=== PATIENT | female | born 1970 | race Two or more races ===

== ENCOUNTER 2022-04-05 07:14 | Day surgery (SDC) | payer MEDICAID ==
[~2022-04-05] VITALS: Ht 160 cm; Wt 59.4 kg
[2022-04-05] VITALS (8 sets, daily range): BP systolic 127–171; BP diastolic 76–101
[2022-04-05] MEDS ORDERED: IODIXANOL 320MG/ML 100ML BTL IV ONE (09:26)
[2022-04-05] MEDS ORDERED: LIDOCAINE 2%HCL (LOCAL ANESTH.) INJ 10ml MDV ONE (09:26)
[2022-04-05] MEDS ORDERED: VERAPAMIL 2.5MG/ML INJ 2ML VIAL IV ONE (09:29)
[2022-04-05] MEDS ORDERED: HEPARIN SODIUM (PORCINE) 5000 UNITS/ML 1ML VIAL ONE (09:29)
[2022-04-05] MEDS ORDERED: fentaNYL CITRATE 100 MCG/2 ML VL ONE (09:29)
[2022-04-05] MEDS ORDERED: ANGIOMAX 250 MG VIAL IV ONE (09:29)
[2022-04-05] MEDS ORDERED: SODIUM CHL 0.9% 0 ML ONE (09:30)
[2022-04-05] MEDS ORDERED: MIDAZOLAM HCL 2MG/2ML 2ml VIAL (1mg/ml) ONE (09:30)
[2022-04-05] MEDS ORDERED: diphenhdrAMINE HCL 50 MG/1 ML VL ONE (11:03)
[2022-04-05] MEDS ORDERED: diphenhdrAMINE HCL 50 MG/1 ML VL IV ONE (11:15)
[2022-04-05] MEDS ORDERED: ALBUAER3 IN (12:39)
[2022-04-05] MEDS ORDERED: LOSA-39 PO (12:39)
[2022-04-05] MEDS ORDERED: IPRAAER6 IN (12:39)
[2022-04-05] MEDS ORDERED: LORA0.5T20 PO (12:39)
[2022-04-05] MEDS ORDERED: BACL10TA PO (12:39)
[2022-04-05] MEDS ORDERED: CLON0.2D6 PO (12:39)
[2022-04-05] MEDS ORDERED: TRIA0.5C TOP (12:39)
[2022-04-05] MEDS ORDERED: GABA300C10 PO (12:39)
[2022-04-05] MEDS ORDERED: ATOR10TA52 PO (12:39)
[2022-04-05] MEDS ORDERED: NITR0.4S29 SL (12:39)
[2022-04-05] MEDS ORDERED: NIFE90TA49 PO (12:39)
[2022-04-05] MEDS ORDERED: IBUP600T28 PO (12:39)
[2022-04-05] MEDS ORDERED: METO-159 PO (12:39)
== END 2022-04-05 12:48 | disposition home or self-care (01) ==
LOC: CATH 07:14
PROVIDERS: ATTEND Internal Medicine Cardiovascular Disease
DX: R94.39 Abnormal result of other cardiovascular function study (principal); I25.10 Atherosclerotic heart disease of native coronary artery without angina pectoris; I10 Essential (primary) hypertension; J44.9 Chronic obstructive pulmonary disease, unspecified; E78.5 Hyperlipidemia, unspecified; F17.210 Nicotine dependence, cigarettes, uncomplicated; Z82.49 Family history of ischemic heart disease and other diseases of the circulatory system; Z86.73 Personal history of transient ischemic attack (TIA), and cerebral infarction without residual deficits; Z20.822 Contact with and (suspected) exposure to COVID-19
CPT/HCPCS: 93458; C1887; C1894; J1200; J1644; J2001; J2250; J3010; Q9967; U0003; 99152; 99153

== ENCOUNTER 2025-10-11 18:08 | Inpatient (IN) | payer MEDICARE, OTHER ==
[~2025-10-11] VITALS: Ht 160 cm; Wt 73.8 kg
[~2025-10-11 18:08] MED LIST: ALBUAER3 IN; ATOR10TA52 PO; BACL10TA PO; CLON0.2D6 PO; GABA-1250 PO; IBUP1TAB5 PO; IPRAAER6 IN; LORA-1121 PO; LOSA-535 PO; METO-159 PO; NIFE90TA75 PO; NITR0.4S29 SL; TRIA0.5C TOP
--- NOTE | 2025-10-11 18:35 | ECG ---
[facility] Test Date: 2025-10-11 Test Time: 18:27:59 Pat Name: BHASKAR ABAD Department: ED Room: [facility] Gender: F Traffic Rate Clerk: EUGENIA : 1970 Requested By: YESICA NIEVES Order Number: [id number] Reading MD: Edson Hernandez Measurements Intervals [place] Rate: 115 P: 57 GA: 111 QRS: 14 QRSD: 74 T: 0 QT: 338 QTc: 468 Interpretive Statements Sinus tachycardia Borderline T abnormalities, diffuse leads Electronically Signed On 10-14-2025 15:01:17 PST by Edson Hernandez Please click the below link to view image of tracing.
[2025-10-11 18:55] LABS: Hematocrit 20.2 % (36.0-46.0)
[2025-10-11 18:57] LABS: Mean Corpuscular Hemoglobin 28.2 pg (28.0-32.0); Mean Corpuscular Volume 85.0 fL (80.0-100.0); Nucleated Red Blood Cells % 0.9 %
[2025-10-11 19:08] LABS: Chloride 104 mmol/L (98-107); Potassium 3.8 mmol/L (3.5-5.1); Sodium 140 mmol/L (136-145)
[2025-10-11 19:09] LABS: Anion Gap 10 (5-15); Carbon Dioxide 26 mmol/L (20-31)
[2025-10-11 19:10] LABS: Calcium 9.1 mg/dL (8.7-10.4)
[2025-10-11 19:14] LABS: BUN/Creatinine Ratio 13.0 (10.0-20.0); Blood Urea Nitrogen 9 mg/dL (9-23)
[2025-10-11 19:17] LABS: Glucose 112 mg/dL (74-106)
[2025-10-11 20:08] LABS: Hemoglobin 6.7 g/dL (12.2-16.2)
[2025-10-11 20:09] LABS: Stomatocytes Few
--- NOTE | 2025-10-11 21:26 | ED.PDOC ---
History of Present Illness HPI Comments 54-year-old female who came to ER for for abnormal labs. Patient has history of brain and lung cancer, currently on chemotherapy. Had routine blood test done earlier, was called to come to the ER because of low hemoglobin levels (6.9). Had prior history of blood transfusions already. Chief Complaint: Abnormal LAB's Time Seen by MD: 21:25 Reviewed Notes: Nurses Notes Allergies: Coded Allergies: NO KNOWN ALLERGIES (Unverified , 04/05/22) Home Meds Reported Medications Triamcinolone Acetonide (Triamcinolone Acetonide) 0.5 % Cre, 1 APPLIC TOP BID for RASH, APPLIC 04/05/22 Losartan Potassium (Losartan Potassium) 100 Mg Tab, 100 MG PO DAILY for HS for 30 Days, MG 04/05/22 Clonidine Hydrochloride (Clonidine Hcl) 0.2 Mg/24 Hr Dis, 0.2 MG PO DAILY for HTN for 30 Days, MG 04/05/22 Ipratropium-Albuterol (COMBIVENT RESPIMAT) Respimat Aer, 1 IN 4 TIMES A DAY for 100 MCG, AER 04/05/22 Albuterol Sulfate (VENTOLIN MDI) 90 Mcg Ih, 90 MCG IN PRN for COPD, INH 04/05/22 Lorazepam (ATIVAN TABLET) 0.5 Mg Tb, 0.5 MG PO TIDP PRN for ANXIETY, TAB 04/05/22 Ibuprofen Micronized (Ibuprofen) 600 Mg Tab, 600 MG PO TIDP, TAB 04/05/22 Baclofen (Baclofen) 10 Mg Tab, 10 MG PO Q8HP PRN for MUSCLE for 30 Days, MG 04/05/22 Gabapentin (Gabapentin) 300 Mg Cap, 300 MG PO TID for NEUROPATHY for 30 Days, MG 04/05/22 Atorvastatin Calcium (ATORVASTATIN CALCIUM) 10 Mg Tab, 1 TAB PO HS for HIGH CHOLESTEROL, #30 TAB 5 Refills 04/05/22 Nifedipine (Nifedipine Er) 90 Mg Tab, 1 TAB PO DAILY for HTN, #30 TAB 5 Refills 04/05/22 Metoprolol Tartrate (Metoprolol Tartrate) 100 Mg Tab, 100 MG PO DAILY for HTN for 30 Days, MG 04/05/22 Nitroglycerin (Nitrostat) 0.4 Mg Sub, 0.4 MG SL PRN for CHEST PAIN, INJ 04/05/22 Information Source: Patient Mode of Arrival: Ambulatory Past Medical History PAST MEDICAL HISTORY: Anemia, Cancer Surgical History (Other): Chemo Therapy PHYSICIAN COMPENSATION ANALYST History: Denies all PHYSICIAN COMPENSATION ANALYST Hx Family History Family History: Reviewed,noncontributory to illness Social History Smoker: Non-Smoker Alcohol: Denies ETOH Use Drugs: Denies Drug Use Lives In: Home Constitutional: reports: weakness; denies: chills, diaphoresis, fatigue, fever, malaise, sweats, others EENTM: denies: blurred vision, double vision, ear bleeding, ear discharge, ear drainage, ear pain, ear ringing, eye pain, eye redness, hearing loss, mouth pain, mouth swelling, nasal discharge, nose bleeding, nose congestion, nose pain, photophobia, tearing, throat pain, throat swelling, voice changes, others Respiratory: denies: cough, hemoptysis, orthopnea, SOB at rest, shortness of breath, SOB with excertion, stridor, wheezing, others Cardiovascular: denies: chest pain, dizzy spells, diaphoresis, Dyspnea on exertion, edema, irregular heart beat, left arm pain, lightheadedness, palpitations, PND, syncope, others Gastrointestinal: denies: abdomen distended, abdominal pain, blood streaked bowels, constipated, diarrhea, dysphagia, difficulty swallowing, hematemesis, melena, nausea, poor appetite, poor fluid intake, rectal bleeding, rectal pain, vomiting, others Genitourinary: denies: abnormal vagina bleeding, burning, dyspareunia, dysuria, flank pain, frequency, hematuria, incontinence, pain, , vagina discharge, urgency, others Neurological: denies: dizziness, fainting, headache, left sided numbness, left sided weakness, numbness, paresthesia, pre-existing deficit, right sided numbn ess, right sided weakness, seizure, speech problems, tingling, tremors, weakness, others Musculoskeletal: denies: back pain, gout, joint pain, joint swelling, muscle pain, muscle stiffness, neck pain, others Integumetry: denies: bruises, change in color, change in hair/nails, dryness, laceration, lesions, lumps, rash, wounds, others Allergic/Immunocompromised: denies: Difficulty Healing, Frequent Infections, Hives, Itching, others Hematologic/Lymphatic: reports: anemia; denies: blood clots, easy bleeding, easy bruising, swollen glands, others Endocrine: denies: excessive hunger, excessive sweating, excessive thirst, excessive urination, flushing, intolerance to cold, intolerance to heat, unexplained weight gain, unexplained weight loss, others Psychiatric: denies: anxiety, bipolar disorder, depression, hopeless, panic disorder, schizophrenia, sleepless, suicidal, others Physical Exam General Appearance: No Apparent Distress, Normal HEENT: Normal ENT Inspection, Pharynx Normal, TMs Normal Neck: Full Range of Motion, Non-Tender, Normal, Normal Inspection Respiratory: Chest Non-Tender, Lungs Clear, No Accessory Muscle Use, No Respiratory Distress, Normal Breath Sounds Cardiovascular: No Edema, No JVD, No Murmur, No Gallop, Normal Peripheral Pul ses, Regular Rate/Rhythm Breast Exam: Deferred Gastrointestinal: No Organomegaly, Non Tender, No Pulsatile Mass, Normal Bowel Sounds, Soft Genitalia: Deferred Pelvic: Deferred Rectal: Deferred Extremities: No calf tenderness, Normal capillary refill, Normal inspection, Normal range of motion, Non-tender, No pedal edema Musculoskeletal : Apperance: Normal Neurologic: Alert, wire coiler II-XII nml as Tested, No Motor Deficits, Normal Affect, Normal Mood, No Sensory Deficits Cerebellar Function: Normal Reflexes: Normal Skin: Dry, Normal Color, Warm Lymphatic: No Adenopathy Was a procedure done? Was a procedure done?: No EKG EKG : Pulse Rate (adult): 115 Cardiac Rhythm: ST Differential Dx Considerations may include: Anemia, electrolyte imbalance, dehydration, cancer X-Ray, Labs, Meds, VS Vital Signs Date Time Temp Pulse Resp B/P (MAP) Pulse Ox O2 Delivery O2 Flow Rate FiO2 10/11/25 21:28 115 10/11/25 18:27 115 10/11/25 18:18 98.5 118 18 120/85 97 98.5 Lab Test 10/11/25 21:34 10/11/25 15:48 Range/Units White Blood Count 3.0 #L 2.2 L 4.4-10.8 10^3/uL Red Blood Count 2.58 L 2.38 L 4.0-5.20 10^6/uL Hemoglobin 7.3 L 6.7 *L 12.2-16.2 g/dL Hematocrit 21.9 L 20.2 L 36.0-46.0 % Mean Corpuscular Volume 84.6 85.0 80.0-100.0 fL Mean Corpuscular Hemoglobin 28.3 28.2 28.0-32.0 pg Mean Corpuscular Hemoglobin Concent 33.4 33.2 32.0-36.0 g/dL Red Cell Distribution Width 20.8 H 21.3 H 11.8-14.3 % Platelet Count 107 L 97 L 140-450 10^3/uL Mean Platelet Volume 7.0 7.0 6.9-10.8 fL Neutrophils (%) (Auto) 35.4 L 33.8 L 37.0-80.0 % Lymphocytes (%) (Auto) 54.5 H 54.5 H 10.0-50.0 % Monocytes (%) (Auto) 9.5 10.8 0.0-12.0 % Eosinophils (%) (Auto) 0.3 0.6 0.0-7.0 % Basophils (%) (Auto) 0.3 0.3 0.0-2.0 % Neutrophils # (Auto) 1.1 L 0.8 L 1.6-8.6 10 ^3/uL Lymphocytes # (Auto) 1.6 1.2 0.4-5.4 10 ^3/uL Monocytes # (Auto) 0.3 0.2 0-1.3 10 ^3/uL Eosinophils # (Auto) 0 0 0-0.8 10 ^3/uL Basophils # (Auto) 0 0 0-0.2 10 ^3/uL Nucleated Red Blood Cells 0.2 0.9 % Prothrombin Time 10.9 9.3-11.8 sec Prothrombin Time INR 1.03 0.9-1.15 Activated Partial Thromboplast Time 25.4 24.5-34.5 SEC Sodium Level 140 140 136-145 mmol/L Potassium Level 4.2 3.8 3.5-5.1 mmol/L Chloride Level 105 104 98-107 mmol/L Carbon Dioxide Level 26 26 20-31 mmol/L Anion Gap 9 10 5-15 Blood Urea Nitrogen 9 9 9-23 mg/dL Creatinine 0.81 0.69 0.550-1.02 mg/dL Glomerular Filtration Rate Calc 87 104 >90 mL/min BUN/Creatinine Ratio 11.1 13.0 10.0-20.0 Serum Glucose 113 H 112 H 74-106 mg/dL Calcium Level 9.5 9.1 8.7-10.4 mg/dL Total Bilirubin 0.3 0.2-1.0 mg/dL Aspartate Amino Transferase (AST) 16 13-40 U/L Alanine Aminotransferase (ALT) 18 7-40 U/L Alkaline Phosphatase 141 H 46-116 U/L B-Type Natriuretic Peptide 15.45 0-100 pg/mL Total Protein 7.0 5.7-8.2 g/dL Albumin 4.0 3.2-4.8 g/dL Hepatitis B Surface Antigen Pending Hepatitis C Antibody Pending Platelet Estimate Decreased Stomatocytes Few Current Medications Medications (Trade) Dose Ordered Sig/Johnson Route Start Time Stop Time Status Last Admin Sodium Chloride 1,000 ml @ 1,000 mls/hr Q1H ONCE IVB 10/11/25 21:15 10/11/25 22:14 DC 10/11/25 22:58 Time of 1ST Reevaluation: 21:22 Reevaluation 1ST: Unchanged Patient Education/Counseling: Diagnosis, Treatment Family Education/Counseling: No Family Present SEPSIS Sepsis Screen Date sepsis recognized/suspect: Oct 11, 2025 Time Sepsis recognized/suspect: 1819 Recent Procedure: No On Antibiotic Therapy: No Respiratory Rate >20: No Heart Rate >90: Yes Temp<36 C (96.8 F) or >38.3 C: No SBP <90 or MAP <65 mmHG: No New Acute Mental Status Change: No Is the patient on CPAP, BIPAP,: No Physician Orders Type And Screen (10/11/25 18:21) Chest Portable (10/11/25 21:08) Electrocardigram (10/11/25 21:08) Packedcell-Noactive Bleeding (10/11/25 21:11) Vital Signs Date Time Temp Pulse Resp B/P (MAP) Pulse Ox O2 Delivery O2 Flow Rate FiO2 10/11/25 21:28 115 10/11/25 18:27 115 10/11/25 18:18 98.5 118 18 120/85 97 98.5 Laboratory Tests Test 10/11/25 15:48 10/11/25 21:34 White Blood Count 2.2 10^3/uL (4.4-10.8) L 3.0 10^3/uL (4.4-10.8) #L Medications Medications Dose Ordered Sig/Johnson Route Start Time Stop Time Status Last Admin Dose Admin Sodium Chloride 1,000 ml @ 1,000 mls/hr Q1H ONCE IVB 10/11/25 21:15 10/11/25 22:14 DC 10/11/25 22:58 Departure 1 Departure Time of Disposition: 23:00 Impression: Primary Impression: Symptomatic anemia Disposition: ADMITTED INPATIENT Admit to: Med Surg Condition: Guarded Discharged With: Self Critical Care Note Critical Care Time?: No Stability Stability form required: No Heart Score Heart Score: Heart Score Response (Comments) Value History N/A 0 EKG N/A 0 Age N/A 0 Risk Factors N/A 0 Troponin N/A 0 Total 0 I personally scribed for YESICA NIEVES MD ([email or web address]) on 10/11/25 at 21:26. Electronically submitted by Cameron Lou ([facility]). I personally scribed for YESICA NIEVES MD ([email or web address]) on 10/11/25 at 21:28. Electronically submitted by Cameron Lou ([facility]). YESICA NIEVES MD Oct 11, 2025 21:26
--- NOTE | 2025-10-11 21:39 | DVHHPRES ---
History of Present Illness Resident Creating Document: ANILA AMAYA RESIDENT History of Present Illness This is a 54-year-old female with past medical history of CVA, COPD, CAD, brain and lung cancer currently on chemotherapy presented to the ED for abnormal lab. The patient had routine blood work done earlier and today she was informed to go to the ER for low hemoglobin level. She was diagnosed with brain and lung cancer on Mar, 2025 and was following in [facility] had received few sessions of chemotherapy and radiotherapy and also received frequent blood transfusion. She denies fever, chills, shortness of breath, cough with productive sputum, abdominal pain, nausea, vomiting, hematuria, or any altered bowel habit. Past Medical History CVA, COPD, CAD, brain and lung cancer currently on chemotherapy Past Surgical History , tonsillectomy, cholecystectomy, Port-A-Cath for chemotherapy Family History Noncontributory Past Social History Former smoker, smokes more than 1 pack per day for 40 years, quit in Mar, 2025 Nondrinker and smoke weed Lives with family Review of Systems Constitutional: No: Fever, Chills, Sweats, Weakness, Malaise, Other Eyes: No: Pain, Vision change, Conjunctivae inflammation, Eyelid inflammation, Other, Redness ENT: No: Ear pain, Ear discharge, Nose pain, Nose discharge, Nose congestion, Mouth pain, Mouth swelling, Throat pain, Throat swelling, Other Respiratory: No: Cough, Dry, Shortness of breath, SOB with excertion, Wheezing, Hemoptysis, Pleuritic Pain, Sputum, Wheezing, Other Cardiovascular: No: Chest Pain, Palpitations, Orthopnea, Paroxysmal Noc. Dyspnea, Edema, Lt Headedness, Other Gastrointestinal: Nausea, Vomiting; No: Abdominal Pain, Diarrhea, Constipation, Melena, Hematochezia, Other Genitourinary: No Dysuria, No Frequency, No Incontinence, No Hematuria, No Retention, No Other Musculoskeletal: No: other, neck pain, shoulder pain, arm pain, back pain, hand pain, leg pain, foot pain Skin: No: Rash, Lesions, Jaundice, Bruising, Other Neurological: No: Weakness, Numbness, Incoordination, Change in speech, Confusion, Seizures, Other Allergies: Coded Allergies: NO KNOWN ALLERGIES (Unverified , 04/05/22) Exam Vital Signs Vital Signs Date Time Temp Pulse Resp B/P (MAP) Pulse Ox O2 Delivery O2 Flow Rate FiO2 10/11/25 21:28 115 10/11/25 18:18 98.5 18 120/85 97 98.5 Exam Physical examination: General Appearance: Alert, Oriented X3, Cooperative, No acute distress HEENT: Atraumatic, PERRLA, EOMI, Mucous membrane moist/pink Respiratory: Port-A-Cath on the chest, Clear to auscultation, Normal air movement Cardiovascular: Regular rate, Normal S1, Normal S2, No murmurs, no chest wall tenderness Abdominal: Normal bowel sounds, Soft, No tenderness, No hepatospenomegaly, No masses Extremities: No clubbing, No cyanosis, No edema, Normal pulses, No tenderness/swelling Skin: No rashes, No breakdown, No significant lesion Neuro: Normal gait, Normal speech, Strength at 5/5 X4 ext, Normal tone, Sensation intact, Cranial nerves 3-12 NL, Reflexes 2+ Psych/Mental Status: Mental status NL, Mood NL Labs/Xrays Labs Test 10/11/25 15:48 Range/Units White Blood Count 2.2 L 4.4-10.8 10^3/uL Red Blood Count 2.38 L 4.0-5.20 10^6/uL Hemoglobin 6.7 *L 12.2-16.2 g/dL Hematocrit 20.2 L 36.0-46.0 % Mean Corpuscular Volume 85.0 80.0-100.0 fL Mean Corpuscular Hemoglobin 28.2 28.0-32.0 pg Mean Corpuscular Hemoglobin Concent 33.2 32.0-36.0 g/dL Red Cell Distribution Width 21.3 H 11.8-14.3 % Platelet Count 97 L 140-450 10^3/uL Mean Platelet Volume 7.0 6.9-10.8 fL Neutrophils (%) (Auto) 33.8 L 37.0-80.0 % Lymphocytes (%) (Auto) 54.5 H 10.0-50.0 % Monocytes (%) (Auto) 10.8 0.0-12.0 % Eosinophils (%) (Auto) 0.6 0.0-7.0 % Basophils (%) (Auto) 0.3 0.0-2.0 % Neutrophils # (Auto) 0.8 L 1.6-8.6 10 ^3/uL Lymphocytes # (Auto) 1.2 0.4-5.4 10 ^3/uL Monocytes # (Auto) 0.2 0-1.3 10 ^3/uL Eosinophils # (Auto) 0 0-0.8 10 ^3/uL Basophils # (Auto) 0 0-0.2 10 ^3/uL Nucleated Red Blood Cells 0.9 % Platelet Estimate Decreased Stomatocytes Few Sodium Level 140 136-145 mmol/L Potassium Level 3.8 3.5-5.1 mmol/L Chloride Level 104 98-107 mmol/L Carbon Dioxide Level 26 20-31 mmol/L Anion Gap 10 5-15 Blood Urea Nitrogen 9 9-23 mg/dL Creatinine 0.69 0.550-1.02 mg/dL Glomerular Filtration Rate Calc 104 >90 mL/min BUN/Creatinine Ratio 13.0 10.0-20.0 Serum Glucose 112 H 74-106 mg/dL Calcium Level 9.1 8.7-10.4 mg/dL SEPSIS Sepsis Screen Date sepsis recognized/suspect: Oct 11, 2025 Time Sepsis recognized/suspect: 1819 Recent Procedure: No On Antibiotic Therapy: No Respiratory Rate >20: No Heart Rate >90: Yes Temp<36 C (96.8 F) or >38.3 C: No SBP <90 or MAP <65 mmHG: No New Acute Mental Status Change: No Is the patient on CPAP, BIPAP,: No Physician Orders Type And Screen (10/11/25 18:21) Complete Blood Count (10/11/25 21:08) Comprehensive Metabolic Panel (10/11/25 21:08) Sodium Chloride 0.9% (10/11/25 21:15) PTPTT (10/11/25 21:08) Chest Portable (10/11/25 21:08) Electrocardigram (10/11/25 21:08) Packedcell-Noactive Bleeding (10/11/25 21:11) Admit (10/11/25 21:35) Code Status (10/11/25 21:35) Cardiac Diet-2gna,Lofat,Lochol (10/12/25 Breakfast) Vital Signs Date Time Temp Pulse Resp B/P (MAP) Pulse Ox O2 Delivery O2 Flow Rate FiO2 10/11/25 21:28 115 10/11/25 18:27 115 10/11/25 18:18 98.5 118 18 120/85 97 98.5 Laboratory Tests Test 10/11/25 15:48 White Blood Count 2.2 10^3/uL (4.4-10.8) L Assessment/Plan Assessment/Plan Assessment and plan: # Acute on chronic anemia likely secondary to chemotherapy # History of lung and brain cancer, diagnosed on 04/06 and currently on chemo and radiotherapy # Pancytopenia due to above # Leukopenia with lymphocytosis - Initial CBC showed hemoglobin 6.7 - Current hemoglobin is 7.3 and patient is not a candidate for blood transfusion right now - Monitor H&H - Chest x-ray showed rounded dense opacity within the right perihilar region. - IV NS at 75 mL/hour - IV ondansetron 4 mg Q 8 p.r.n. - Pending UA, UDS, COVID, flu and hepatitis panel # DVT prophylaxis - hold due to anemia Goal of care and code status discussed with the patient for more than 23 minutes full code Plan discussed with Dr. Streeter Plan discussed with: Patient, Other (RN) My Orders Orders - ANILA AMAYA Procedure Category Date Status Time Admit ADMIT 10/11/25 Verified 21:35 Code Status CODE 10/11/25 Verified 21:35 Cardiac DIET 10/12/25 Verified Diet-2gna,Lofat,Lochol Breakfast Date of Service: Oct 12, 2025 Billing Provider: ANILA AMAYA Common Visit Codes: [id number] INP/OBS CARE (HIGH) Secondary Visit Codes: 06679-[id number] CARE PLAN 30 MINUTES ANILA AMAYA Oct 11, 2025 21:39
[2025-10-11 21:45] LABS: Hemoglobin 7.3 g/dL (12.2-16.2)
[2025-10-11 21:48] LABS: Hematocrit 21.9 % (36.0-46.0); Mean Corpuscular Hemoglobin 28.3 pg (28.0-32.0); Mean Corpuscular Volume 84.6 fL (80.0-100.0); Nucleated Red Blood Cells % 0.2 %
--- NOTE | 2025-10-11 21:57 | DVH ---
CHEST RADIOGRAPH Indication: SOB Technique: Single frontal view of the chest was obtained COMPARISON: None FINDINGS: Right-sided Port-A-Cath in-situ with tip terminating near the cavoatrial junction. Rounded dense opacity within the right perihilar region. Lungs and pleural spaces otherwise clear. Cardiac silhouette and swati are within normal limits. Bones and soft tissues demonstrate no significant abnormality. IMPRESSION: Somewhat rounded dense opacity within the right perihilar region. This could represent either a mass or focus of pneumonia. Please correlate clinically consider follow-up x-rays or CT.
[2025-10-11 22:06] LABS: Alanine Aminotransferase 18 U/L (7-40); Albumin 4.0 g/dL (3.2-4.8); Anion Gap 9 (5-15); BUN/Creatinine Ratio 11.1 (10.0-20.0); Bilirubin, Total 0.3 mg/dL (0.2-1.0); Blood Urea Nitrogen 9 mg/dL (9-23); Calcium 9.5 mg/dL (8.7-10.4); Carbon Dioxide 26 mmol/L (20-31); Chloride 105 mmol/L (98-107); Potassium 4.2 mmol/L (3.5-5.1); Sodium 140 mmol/L (136-145); Total Protein 7.0 g/dL (5.7-8.2)
[2025-10-11 22:21] LABS: Alkaline Phosphatase 141 U/L (46-116); Glucose 113 mg/dL (74-106)
[2025-10-11 22:47] LABS: INR 1.03 (0.9-1.15); Partial Thromboplastin Time 25.4 SEC (24.5-34.5); Prothrombin Time 10.9 sec (9.3-11.8)
[2025-10-11] MEDS: SODIUM CHLORIDE 0.9% 1,000 ML IVB ONE (22:58)
[2025-10-11 23:21] VITALS: BP 125/84; PULSE 112; RESP 18; TEMP 98.5; O2SAT 98
[2025-10-11] MEDS ORDERED: ONDANSETRON HCL 4 MG/2 ML VIAL IV PRN (23:30)
[2025-10-11] MEDS: SODIUM CHLORIDE 0.9% 1,000 ML IV SCH (23:30)
[2025-10-12] VITALS (8 sets, daily range): BP systolic 115–140; BP diastolic 68–97; PULSE 92–112; RESP 16–20; TEMP 97.9–98.9; O2SAT 92–100
[2025-10-12 05:10] LABS: COVID19 ANTIGEN SOFIA FIA NEGATIVE (NEGATIVE)
--- NOTE | 2025-10-12 12:21 | DVHPN2 ---
Subjective The patient seen and examined at bedside. The patient complains that the room is too cold and she did not have her blood transfusion. Reviewed: Care Plan, H&P, Labs, Medications, Previous Orders, Radiology Changes from previous H/P or p: No Changes Eyes: No Pain, No Vision change, No Conjunctivae inflammation, No Eyelid inflammation, No Other, No Redness ENT: No Ear pain, No Ear discharge, No Nose pain, No Nose discharge, No Nose congestion, No Mouth pain, No Mouth swelling, No Throat pain, No Throat swelling, No Other Cardiovascular: No Chest Pain, No Palpitations, No Orthopnea, No Paroxysmal Noc. Dyspnea, No Edema, No Lt Headedness, No Other Respiratory: No Cough, No Dry, No Shortness of breath, No SOB with excertion, No Wheezing, No Hemoptysis, No Pleuritic Pain, No Sputum, No Other Gastrointestinal: Nausea, Vomiting; No Abdominal Pain, No Diarrhea, No Constipation, No Melena, No Hematochezia, No Other Genitourinary: No Dysuria, No Frequency, No Incontinence, No Hematuria, No Retention, No Other Musculoskeletal: No other, No neck pain, No shoulder pain, No arm pain, No back pain, No hand pain, No leg pain, No foot pain Skin: No Rash, No Lesions, No Jaundice, No Bruising, No Other Objective Vitals Vital Signs Date Time Temp Pulse Resp B/P (MAP) Pulse Ox O2 Delivery O2 Flow Rate FiO2 10/12/25 09:00 98.3 111 16 126/85 (99) 97 98.3 10/12/25 00:03 Room Air* 0 21 Intake/Output Intake and Output 10/12/25 07:00 Intake Total 240 ml Balance 240 ml Intake Oral 240 ml # Voids 2 General Appearance: Alert, Oriented X3, Cooperative, No acute distress HEENT: Atraumatic, PERRLA, EOMI, Mucous membr. moist/pink Neck: Supple Lungs: Clear to auscultation, Normal air movement Cardiovascular: Regular rate, Normal S1, Normal S2, No murmurs, Gallops, Rubs Abdomen: Normal bowel sounds, Soft, No tenderness, No hepatospenomegaly Neuro: Cranial nerves 3-12 NL Psych/Mental Status: Mental status NL Medications Current Medications Medications Dose Ordered Sig/Johnson Route Start Time Stop Time Status Last Admin Dose Admin Sodium Chloride 1,000 ml @ 75 mls/hr [id number] IV 10/11/25 23:30 10/11/25 23:30 75 MLS/HR Ondansetron HCl 4 mg Q8HPRN PRN IV 10/11/25 23:30 Acetaminophen/ Hydrocodone Bitart 1 tab Q4HPRN PRN PO 10/12/25 12:00 Laboratory Results Laboratory Tests 10/11/25 21:34 Chemistry Test 10/11/25 15:48 10/11/25 21:34 Calcium Level 9.1 mg/dL (8.7-10.4) 9.5 mg/dL (8.7-10.4) Albumin 4.0 g/dL (3.2-4.8) Total Protein 7.0 g/dL (5.7-8.2) Coagulation Test 10/11/25 21:34 Prothrombin Time 10.9 sec (9.3-11.8) Prothrombin Time INR 1.03 (0.9-1.15) Activated Partial Thromboplast Time 25.4 SEC (24.5-34.5) Cardiac Markers Test 10/11/25 21:34 B-Type Natriuretic Peptide 15.45 pg/mL (0-100) LFT Test 10/11/25 21:34 Alanine Aminotransferase (ALT) 18 U/L (7-40) Alkaline Phosphatase 141 U/L (46-116) H Aspartate Amino Transferase (AST) 16 U/L (13-40) Total Bilirubin 0.3 mg/dL (0.2-1.0) Labs and/or images reviewed: Labs reviewed by me Assessment/Plan Assessment/Plan # Acute on chronic anemia likely secondary to chemotherapy # History of lung and brain cancer, diagnosed on 04/06 and currently on chemo and radiotherapy # Pancytopenia due to above # Leukopenia with lymphocytosis - Initial CBC showed hemoglobin 6.7 - Repeat hemoglobin is 7.3 . Explained to the patient that her hemoglobin is above seven. We will type and cross and transfuse if her hemoglobin drops again less than seven. - Monitor H&H - Chest x-ray showed rounded dense opacity within the right perihilar region. - IV NS at 75 mL/hour - IV ondansetron 4 mg Q 8 p.r.n. - Pending UA, UDS, COVID, flu and hepatitis panel # DVT prophylaxis - hold due to anemia Plan discussed with: Patient My Orders Orders - RAVI NARANJO MD Procedure Category Date Status Time Hydrocodone-Acet PHA 10/12/25 In Process 5/325mg Tab ([place] 12:00 Date of Service: Oct 12, 2025 Billing Provider: RAVI NARANJO MD Common Visit Codes: [id number] INP/OBS CARE(HIGH) RAVI NARANJO MD Oct 12, 2025 12:21
[2025-10-12] MEDS: HYDROcodone-ACET 5/325MG TAB PO PRN (12:39)
[2025-10-13] VITALS (11 sets, daily range): BP systolic 123–154; BP diastolic 74–102; PULSE 92–124; RESP 16–19; TEMP 97.6–98.8; O2SAT 95–100
[2025-10-13 05:16] LABS: Hematocrit 19.2 % (36.0-46.0); Mean Corpuscular Hemoglobin 28.7 pg (28.0-32.0); Mean Corpuscular Volume 86.1 fL (80.0-100.0); Nucleated Red Blood Cells % 0.4 %
[2025-10-13 05:24] LABS: Chloride 105 mmol/L (98-107); Potassium 4.0 mmol/L (3.5-5.1); Sodium 140 mmol/L (136-145)
[2025-10-13 05:25] LABS: Anion Gap 8 (5-15); Calcium 9.6 mg/dL (8.7-10.4); Carbon Dioxide 27 mmol/L (20-31)
[2025-10-13 05:30] LABS: BUN/Creatinine Ratio 12.1 (10.0-20.0); Glucose 96 mg/dL (74-106)
[2025-10-13 05:34] LABS: Blood Urea Nitrogen 7 mg/dL (9-23)
[2025-10-13 05:38] LABS: Hemoglobin 6.4 g/dL (12.2-16.2)
[2025-10-13 05:42] LABS: Urine Protein, UAD Negative (Negative)
[2025-10-13 05:56] LABS: Benzodiazephine Screen, Urine Pos (NEGATIVE)
[2025-10-13 05:57] LABS: Opiate Scree,Urine Neg (NEGATIVE)
[2025-10-13 06:02] LABS: Amphetamine Screen, Urine Neg (NEGATIVE); Barbiturate Scree,Urine Neg (NEGATIVE); Cannabinoid Screen, Urine Neg (NEGATIVE); Cocaine Screen, Urine Neg (NEGATIVE); Phencyclidine Screen, Urine Neg (NEGATIVE)
--- NOTE | 2025-10-13 11:59 | DVHPN2 ---
Subjective The patient seen and examined at bedside. The patient still not have blood transfusion yet. Hb is 6.4 today. Reviewed: Care Plan, H&P, Labs, Medications, Previous Orders, Radiology Changes from previous H/P or p: No Changes Eyes: No Pain, No Vision change, No Conjunctivae inflammation, No Eyelid inflammation, No Other, No Redness ENT: No Ear pain, No Ear discharge, No Nose pain, No Nose discharge, No Nose congestion, No Mouth pain, No Mouth swelling, No Throat pain, No Throat swelling, No Other Cardiovascular: No Chest Pain, No Palpitations, No Orthopnea, No Paroxysmal Noc. Dyspnea, No Edema, No Lt Headedness, No Other Respiratory: No Cough, No Dry, No Shortness of breath, No SOB with excertion, No Wheezing, No Hemoptysis, No Pleuritic Pain, No Sputum, No Other Gastrointestinal: Nausea, Vomiting; No Abdominal Pain, No Diarrhea, No Constipation, No Melena, No Hematochezia, No Other Genitourinary: No Dysuria, No Frequency, No Incontinence, No Hematuria, No Retention, No Other Musculoskeletal: No other, No neck pain, No shoulder pain, No arm pain, No back pain, No hand pain, No leg pain, No foot pain Skin: No Rash, No Lesions, No Jaundice, No Bruising, No Other Objective Vitals Vital Signs Date Time Temp Pulse Resp B/P (MAP) Pulse Ox O2 Delivery O2 Flow Rate FiO2 10/13/25 09:00 98.0 124 19 138/92 (107) 100 98.0 10/13/25 08:00 Room Air* 0 21 Intake/Output Intake and Output 10/13/25 07:00 Intake Total 1000 ml Balance 1000 ml Intake Oral 1000 ml # Voids 4 # Bowel Movements 1 General Appearance: Alert, Oriented X3, Cooperative, No acute distress HEENT: Atraumatic, PERRLA, EOMI, Mucous membr. moist/pink Neck: Supple Lungs: Clear to auscultation, Normal air movement Cardiovascular: Regular rate, Normal S1, Normal S2, No murmurs, Gallops, Rubs Abdomen: Normal bowel sounds, Soft, No tenderness, No hepatospenomegaly Neuro: Cranial nerves 3-12 NL Psych/Mental Status: Mental status NL Medications Current Medications Medications Dose Ordered Sig/Johnson Route Start Time Stop Time Status Last Admin Dose Admin Sodium Chloride 1,000 ml @ 75 mls/hr [id number] IV 10/11/25 23:30 10/12/25 17:03 75 MLS/HR Ondansetron HCl 4 mg Q8HPRN PRN IV 10/11/25 23:30 Acetaminophen/ Hydrocodone Bitart 1 tab Q4HPRN PRN PO 10/12/25 12:00 10/13/25 05:43 1 TAB Laboratory Results Laboratory Tests 10/13/25 04:34 Chemistry Test 10/13/25 04:34 Calcium Level 9.6 mg/dL (8.7-10.4) Urinalysis Test 10/13/25 05:20 Urine Color Colorless (Yellow) Urine Clarity Clear (Clear) Urine pH 6.0 (5.0-9.0) Urine Specific [place] 1.004 (1.001-1.035) Urine Protein Negative (Negative) Urine Ketones Negative (Negative) Urine Blood Negative /uL (Negative) Urine Nitrite Negative (Negative) Urine Bilirubin Negative (Negative) Urine Urobilinogen Normal mg/dL (Negative) Urine Leukocyte Esterase Negative /uL (Negative) Urine RBC 1 /hpf (0 - 4) Urine Microscopic WBC < 1 /HPF (0-5) Urine Squamous Epithelial Cells Few /hpf (<5) Urine Bacteria None seen /hpf (None Seen) Urine Glucose Normal mg/dL (Normal) Microbiology Microbiology Date/Time Source Procedure Growth Status 10/12/25 02:43 Nose MRSA Screen - Final Complete Labs and/or images reviewed: Labs reviewed by me Assessment/Plan Assessment/Plan # Acute on chronic anemia likely secondary to chemotherapy # History of lung and brain cancer, diagnosed on 04/06 and currently on chemo and radiotherapy # Pancytopenia due to above # Leukopenia with lymphocytosis - Continuing current management. Waiting for blood bank for one packed red blood cell to transfused. repeat CBC in am - Monitor H&H - Chest x-ray showed rounded dense opacity within the right perihilar region. - IV NS at 75 mL/hour - IV ondansetron 4 mg Q 8 p.r.n. - Pending UA, UDS, COVID, flu and hepatitis panel # DVT prophylaxis - hold due to anemia Plan discussed with: Patient Date of Service: Oct 13, 2025 Billing Provider: RAVI NARANJO MD Common Visit Codes: [id number] INP/OBS CARE(HIGH) RAVI NARANJO MD Oct 13, 2025 11:59
[2025-10-13 12:04] LABS: Hepatitis B Surface Antigen Negative (Negative)
[2025-10-13 12:30] LABS: Hepatitis C Antibody Negative (Negative)
[2025-10-14] VITALS (7 sets, daily range): BP systolic 121–146; BP diastolic 71–97; PULSE 97–110; RESP 17–19; TEMP 97.5–98.6; O2SAT 98–100
[2025-10-14 07:22] LABS: Hematocrit 22.7 % (36.0-46.0); Hemoglobin 8.1 g/dL (12.2-16.2); Mean Corpuscular Hemoglobin 31.7 pg (28.0-32.0); Mean Corpuscular Volume 88.5 fL (80.0-100.0); Nucleated Red Blood Cells % 0.2 %
[2025-10-14 07:23] LABS: Anion Gap 10 (5-15); Carbon Dioxide 27 mmol/L (20-31); Chloride 104 mmol/L (98-107); Potassium 4.5 mmol/L (3.5-5.1); Sodium 141 mmol/L (136-145)
[2025-10-14 07:24] LABS: Calcium 9.6 mg/dL (8.7-10.4)
[2025-10-14 07:29] LABS: BUN/Creatinine Ratio 10.3 (10.0-20.0); Glucose 95 mg/dL (74-106)
[2025-10-14 07:30] LABS: Blood Urea Nitrogen 7 mg/dL (9-23)
--- NOTE | 2025-10-14 13:27 | DVHPN2 ---
Reviewed: Care Plan, H&P, Labs, Medications, Previous Orders, Radiology Changes from previous H/P or p: No Changes Eyes: No Pain, No Vision change, No Conjunctivae inflammation, No Eyelid inflammation, No Other, No Redness ENT: No Ear pain, No Ear discharge, No Nose pain, No Nose discharge, No Nose congestion, No Mouth pain, No Mouth swelling, No Throat pain, No Throat swelling, No Other Cardiovascular: No Chest Pain, No Palpitations, No Orthopnea, No Paroxysmal Noc. Dyspnea, No Edema, No Lt Headedness, No Other Respiratory: No Cough, No Dry, No Shortness of breath, No SOB with excertion, No Wheezing, No Hemoptysis, No Pleuritic Pain, No Sputum, No Other Gastrointestinal: Nausea, Vomiting; No Abdominal Pain, No Diarrhea, No Constipation, No Melena, No Hematochezia, No Other Genitourinary: No Dysuria, No Frequency, No Incontinence, No Hematuria, No Retention, No Other Musculoskeletal: No other, No neck pain, No shoulder pain, No arm pain, No back pain, No hand pain, No leg pain, No foot pain Skin: No Rash, No Lesions, No Jaundice, No Bruising, No Other Objective Vitals Vital Signs Date Time Temp Pulse Resp B/P (MAP) Pulse Ox O2 Delivery O2 Flow Rate FiO2 10/14/25 09:00 97.5 110 17 121/82 (95) 99 97.5 10/14/25 07:58 Room Air* 0 21 Intake/Output Intake and Output 10/14/25 07:00 Intake Total 2030 ml Balance 2030 ml Intake Oral 1430 ml Blood Product 600 ml # Voids 5 # Bowel Movements 2 General Appearance: Alert, Oriented X3, Cooperative, No acute distress HEENT: Atraumatic, PERRLA, EOMI, Mucous membr. moist/pink Neck: Supple Lungs: Clear to auscultation, Normal air movement Cardiovascular: Regular rate, Normal S1, Normal S2, No murmurs, Gallops, Rubs Abdomen: Normal bowel sounds, Soft, No tenderness, No hepatospenomegaly Neuro: Cranial nerves 3-12 NL Psych/Mental Status: Mental status NL Medications Current Medications Medications Dose Ordered Sig/Johnson Route Start Time Stop Time Status Last Admin Dose Admin Sodium Chloride 1,000 ml @ 75 mls/hr [id number] IV 10/11/25 23:30 10/14/25 04:50 75 MLS/HR Ondansetron HCl 4 mg Q8HPRN PRN IV 10/11/25 23:30 Acetaminophen/ Hydrocodone Bitart 1 tab Q4HPRN PRN PO 10/12/25 12:00 10/13/25 05:43 1 TAB Laboratory Results Laboratory Tests 10/14/25 05:00 Chemistry Test 10/14/25 05:00 Calcium Level 9.6 mg/dL (8.7-10.4) Urinalysis Test 10/13/25 05:20 Urine Color Colorless (Yellow) Urine Clarity Clear (Clear) Urine pH 6.0 (5.0-9.0) Urine Specific [place] 1.004 (1.001-1.035) Urine Protein Negative (Negative) Urine Ketones Negative (Negative) Urine Blood Negative /uL (Negative) Urine Nitrite Negative (Negative) Urine Bilirubin Negative (Negative) Urine Urobilinogen Normal mg/dL (Negative) Urine Leukocyte Esterase Negative /uL (Negative) Urine RBC 1 /hpf (0 - 4) Urine Microscopic WBC < 1 /HPF (0-5) Urine Squamous Epithelial Cells Few /hpf (<5) Urine Bacteria None seen /hpf (None Seen) Urine Glucose Normal mg/dL (Normal) Microbiology Microbiology Date/Time Source Procedure Growth Status 10/12/25 02:43 Nose MRSA Screen - Final Complete Labs and/or images reviewed: Labs reviewed by me, Image(s) reviewed by me Assessment/Plan Assessment/Plan Covering for Dr Sanchez # Acute on chronic anemia hemoglobin 6.7 improved to 8.1 after 1 unit RBC transfusion likely secondary to chemotherapy # History of lung and brain cancer, diagnosed on 04/06 and currently on chemo and radiotherapy # Pancytopenia due to above # Leukopenia with lymphocytosis Time spent 50 minutes Advanced care planning time 20 minutes Patient is full code Check CBC tomorrow and DC Plan discussed with: Patient Date of Service: Oct 14, 2025 Billing Provider: BECK LISA MD Common Visit Codes: [id number] INP/OBS CARE(HIGH) BECK LISA MD Oct 14, 2025 13:27
[2025-10-15 01:00] VITALS: BP 131/87; PULSE 103; RESP 18; TEMP 97.9; O2SAT 97
[2025-10-15 05:00] VITALS: BP 148/82; PULSE 97; RESP 17; TEMP 98.1; O2SAT 96
[2025-10-15 05:45] LABS: Hematocrit 25.7 % (36.0-46.0); Hemoglobin 8.9 g/dL (12.2-16.2); Mean Corpuscular Hemoglobin 30.6 pg (28.0-32.0); Mean Corpuscular Volume 88.0 fL (80.0-100.0); Nucleated Red Blood Cells % 0.7 %
[2025-10-15 09:00] VITALS: BP 130/92; PULSE 118; RESP 18; TEMP 97.4; O2SAT 98
[2025-10-15 13:00] VITALS: BP 136/91; PULSE 108; RESP 16; TEMP 97; O2SAT 96
[2025-10-15] MEDS ORDERED: FERR-7 PO (14:40)
--- NOTE | 2025-10-15 14:41 | DVHPN2 ---
Reviewed: Care Plan, H&P, Labs, Medications, Previous Orders, Radiology Changes from previous H/P or p: No Changes Eyes: No Pain, No Vision change, No Conjunctivae inflammation, No Eyelid inflammation, No Other, No Redness ENT: No Ear pain, No Ear discharge, No Nose pain, No Nose discharge, No Nose congestion, No Mouth pain, No Mouth swelling, No Throat pain, No Throat swelling, No Other Cardiovascular: No Chest Pain, No Palpitations, No Orthopnea, No Paroxysmal Noc. Dyspnea, No Edema, No Lt Headedness, No Other Respiratory: No Cough, No Dry, No Shortness of breath, No SOB with excertion, No Wheezing, No Hemoptysis, No Pleuritic Pain, No Sputum, No Other Gastrointestinal: Nausea, Vomiting; No Abdominal Pain, No Diarrhea, No Constipation, No Melena, No Hematochezia, No Other Genitourinary: No Dysuria, No Frequency, No Incontinence, No Hematuria, No Retention, No Other Musculoskeletal: No other, No neck pain, No shoulder pain, No arm pain, No back pain, No hand pain, No leg pain, No foot pain Skin: No Rash, No Lesions, No Jaundice, No Bruising, No Other Objective Vitals Vital Signs Date Time Temp Pulse Resp B/P (MAP) Pulse Ox O2 Delivery O2 Flow Rate FiO2 10/15/25 09:00 97.4 118 18 130/92 (105) 98 97.4 10/14/25 20:00 Room Air* 0 21 Intake/Output Intake and Output 10/15/25 07:00 Intake Total 1080 ml Balance 1080 ml Intake Oral 1080 ml # Voids 5 # Bowel Movements 1 General Appearance: Alert, Oriented X3, Cooperative, No acute distress HEENT: Atraumatic, PERRLA, EOMI, Mucous membr. moist/pink Neck: Supple Lungs: Clear to auscultation, Normal air movement Cardiovascular: Regular rate, Normal S1, Normal S2, No murmurs, Gallops, Rubs Abdomen: Normal bowel sounds, Soft, No tenderness, No hepatospenomegaly Neuro: Cranial nerves 3-12 NL Psych/Mental Status: Mental status NL Medications Current Medications Medications Dose Ordered Sig/Johnson Route Start Time Stop Time Status Last Admin Dose Admin Sodium Chloride 1,000 ml @ 75 mls/hr [id number] IV 10/11/25 23:30 10/14/25 04:50 75 MLS/HR Ondansetron HCl 4 mg Q8HPRN PRN IV 10/11/25 23:30 Acetaminophen/ Hydrocodone Bitart 1 tab Q4HPRN PRN PO 10/12/25 12:00 10/15/25 09:39 1 TAB Laboratory Results Laboratory Tests 10/14/25 05:00 10/15/25 04:47 Urinalysis Test 10/13/25 05:20 Urine Color Colorless (Yellow) Urine Clarity Clear (Clear) Urine pH 6.0 (5.0-9.0) Urine Specific [place] 1.004 (1.001-1.035) Urine Protein Negative (Negative) Urine Ketones Negative (Negative) Urine Blood Negative /uL (Negative) Urine Nitrite Negative (Negative) Urine Bilirubin Negative (Negative) Urine Urobilinogen Normal mg/dL (Negative) Urine Leukocyte Esterase Negative /uL (Negative) Urine RBC 1 /hpf (0 - 4) Urine Microscopic WBC < 1 /HPF (0-5) Urine Squamous Epithelial Cells Few /hpf (<5) Urine Bacteria None seen /hpf (None Seen) Urine Glucose Normal mg/dL (Normal) Microbiology Microbiology Date/Time Source Procedure Growth Status 10/12/25 02:43 Nose MRSA Screen - Final Complete Labs and/or images reviewed: Labs reviewed by me, Image(s) reviewed by me Assessment/Plan Assessment/Plan Covering for Dr Sanchez # Acute on chronic anemia hemoglobin 6.7 improved to 8.1 after 1 unit RBC transfusion likely secondary to chemotherapy # History of lung and brain cancer, diagnosed on 04/06 and currently on chemo and radiotherapy # Pancytopenia due to above # Leukopenia with lymphocytosis Time spent 50 minutes Advanced care planning time 20 minutes Patient is full code Check CBC tomorrow and DC Plan discussed with: Patient Date of Service: Oct 15, 2025 Billing Provider: BECK LISA MD Common Visit Codes: [id number] INP/OBS CARE(HIGH) BECK LISA MD Oct 15, 2025 14:41
--- NOTE | 2025-10-15 14:45 | DVHDS2 ---
Discharge Summary Date of Admission Oct 11, 2025 at 21:35 Date of Discharge: Oct 15, 2025 Admitting Diagnosis Generalized weakness Wounds: None Labs/Diagnostic Data: Laboratory Results Test 10/15/25 04:47 10/14/25 05:00 10/13/25 05:20 10/12/25 03:07 White Blood Count 3.4 10^3/uL (4.4-10.8) Red Blood Count 2.92 10^6/uL (4.0-5.20) Hemoglobin 8.9 g/dL (12.2-16.2) Hematocrit 25.7 % (36.0-46.0) Mean Corpuscular Volume 88.0 fL (80.0-100.0) Mean Corpuscular Hemoglobin 30.6 pg (28.0-32.0) Mean Corpuscular Hemoglobin Concent 34.7 g/dL (32.0-36.0) Red Cell Distribution Width 21.6 % (11.8-14.3) Platelet Count 97 10^3/uL (140-450) Mean Platelet Volume 7.7 fL (6.9-10.8) Neutrophils (%) (Auto) 47.1 % (37.0-80.0) Lymphocytes (%) (Auto) 40.1 % (10.0-50.0) Monocytes (%) (Auto) 11.6 % (0.0-12.0) Eosinophils (%) (Auto) 0.8 % (0.0-7.0) Basophils (%) (Auto) 0.4 % (0.0-2.0) Neutrophils # (Auto) 1.6 10 ^3/uL (1.6-8.6) Lymphocytes # (Auto) 1.4 10 ^3/uL (0.4-5.4) Monocytes # (Auto) 0.4 10 ^3/uL (0-1.3) Eosinophils # (Auto) 0 10 ^3/uL (0-0.8) Basophils # (Auto) 0 10 ^3/uL (0-0.2) Nucleated Red Blood Cells 0.7 % Sodium Level 141 mmol/L (136-145) Potassium Level 4.5 mmol/L (3.5-5.1) Chloride Level 104 mmol/L (98-107) Carbon Dioxide Level 27 mmol/L (20-31) Anion Gap 10 (5-15) Blood Urea Nitrogen 7 mg/dL (9-23) Creatinine 0.68 mg/dL (0.550-1.02) Glomerular Filtration Rate Calc 104 mL/min (>90) BUN/Creatinine Ratio 10.3 (10.0-20.0) Serum Glucose 95 mg/dL (74-106) Calcium Level 9.6 mg/dL (8.7-10.4) Urine Color Colorless (Yellow) Urine Clarity Clear (Clear) Urine pH 6.0 (5.0-9.0) Urine Specific [place] 1.004 (1.001-1.035) Urine Protein Negative (Negative) Urine Ketones Negative (Negative) Urine Blood Negative /uL (Negative) Urine Nitrite Negative (Negative) Urine Bilirubin Negative (Negative) Urine Urobilinogen Normal mg/dL (Negative) Urine Leukocyte Esterase Negative /uL (Negative) Urine RBC 1 /hpf (0 - 4) Urine Microscopic WBC < 1 /HPF (0-5) Urine Squamous Epithelial Cells Few /hpf (<5) Urine Bacteria None seen /hpf (None Seen) Urine Glucose Normal mg/dL (Normal) Urine Opiates Screen Neg (NEGATIVE) Urine Fentanyl Screen Neg (NEGATIVE) Urine Barbiturates Screen Neg (NEGATIVE) Urine Phencyclidine Screen Neg (NEGATIVE) Urine Amphetamines Screen Neg (NEGATIVE) Urine Benzodiazepines Screen Pos (NEGATIVE) Urine Cocaine Screen Neg (NEGATIVE) Urine Cannabinoids Screen Neg (NEGATIVE) Influenza Type A Antigen Negative (Negative) Influenza Type B Antigen Negative (Negative) SARS-CoV-2 Antigen (Rapid) Negative (NEGATIVE) Test 10/11/25 21:34 10/11/25 15:48 Prothrombin Time 10.9 sec (9.3-11.8) Prothrombin Time INR 1.03 (0.9-1.15) Activated Partial Thromboplast Time 25.4 SEC (24.5-34.5) Total Bilirubin 0.3 mg/dL (0.2-1.0) Aspartate Amino Transferase (AST) 16 U/L (13-40) Alanine Aminotransferase (ALT) 18 U/L (7-40) Alkaline Phosphatase 141 U/L (46-116) B-Type Natriuretic Peptide 15.45 pg/mL (0-100) Total Protein 7.0 g/dL (5.7-8.2) Albumin 4.0 g/dL (3.2-4.8) Hepatitis B Surface Antigen Negative (Negative) Hepatitis C Antibody Negative (Negative) Platelet Estimate Decreased Stomatocytes Few Other Laboratory Tests 10/15/25 04:47 10/14/25 05:00 Brief Hx & Hospital Course: 4-year-old female with a history of lung and brain cancer diagnosed March 2025 currently on chemo and radiation therapy history of pancytopenia came in complaining of generalized weakness hemoglobin 6.7 improved to 8.1 after 1 unit RBC transfusion. Patient feels well being discharged home prescription for iron tablets sent to the pharmacy . She was advised to follow up with the oncologist for further care Consults/Reason for consult None Operations or Procedures RBC transfusion Condition at Discharge: Fair Final Diagnosis/Problems List # Acute on chronic anemia hemoglobin 6.7 improved to 8.1 after 1 unit RBC transfusion likely secondary to chemotherapy # History of lung and brain cancer, diagnosed on 04/06 and currently on chemo and radiotherapy # Pancytopenia due to above # Leukopenia with lymphocytosis Discharge Disposition: Home Discharge Instruct/Medications Diet: Regular Activity: Light activity Follow Up/Referral: Continue all your previous home medications Follow up with your Oncologist Medications: Iron tablets Transmitted to pharmacy Scheduled Albuterol Sulfate (Ventolin Mdi), 90 MCG IN PRN, (Reported) Atorvastatin Calcium (Atorvastatin Calcium), 1 TAB PO HS, (Reported) Clonidine Hydrochloride (Clonidine Hcl), 0.2 MG PO DAILY, (Reported) Ferrous Sulfate (Iron), 325 MG PO BID Gabapentin (Gabapentin), 300 MG PO TID, (Reported) Ibuprofen Micronized (Ibuprofen), 600 MG PO TIDP, (Reported) Ipratropium-Albuterol (Combivent Respimat), 1 IN 4 TIMES A DAY, (Reported) Losartan Potassium (Losartan Potassium), 100 MG PO DAILY, (Reported) Metoprolol Tartrate (Metoprolol Tartrate), 100 MG PO DAILY, (Reported) Nifedipine (Nifedipine Er), 1 TAB PO DAILY, (Reported) Nitroglycerin (Nitrostat), 0.4 MG SL PRN, (Reported) Triamcinolone Acetonide (Triamcinolone Acetonide), 1 APPLIC TOP BID, (Reported) Scheduled PRN Baclofen (Baclofen), 10 MG PO Q8HP PRN for MUSCLE, (Reported) Lorazepam (Ativan Tablet), 0.5 MG PO TIDP PRN for ANXIETY, (Reported) 39 (Time Taken For discharge summary 39 minutes) Discharge Statement: "Patient was advised to return to the ER or call 911 if any headaches, dizziness, shortness of breath, chest pain, abdominal pain, bleeding, fevers, or worsening of medical condition. Patient was counseled about treatment plan, medications, possible side effects, patientverbalized understanding. All questions were answered to the best of my ability. This discharge took greater then 30 minutes in planning, reviewing documentation, counseling the patient, and discussing with other team members." ASSESSMENT ASSESSMENT Hospital Course Improved Assessment # Acute on chronic anemia hemoglobin 6.7 improved to 8.1 after 1 unit RBC transfusion likely secondary to chemotherapy # History of lung and brain cancer, diagnosed on 04/06 and currently on chemo and radiotherapy # Pancytopenia due to above # Leukopenia with lymphocytosis Date of Service: Oct 15, 2025 Billing Provider: BECK LISA MD Common Visit Codes: [id number] INP/OBS CARE(HIGH) BECK LISA MD Oct 15, 2025 14:45
[2025-10-15 14:50] VITALS: TEMP 36.3
[2025-10-15 15:24] VITALS: TEMP 36.1
== END 2025-10-15 15:00 | disposition home or self-care (01) | DRG 812 ==
LOC: ER 18:08 → OVERFLOW 21:35 → WEST WING 10-12 14:52
PROVIDERS: ADMIT Family Medicine; ATTEND Family Medicine
PROC: 30233N1 Transfusion of Nonautologous Red Blood Cells into Peripheral Vein, Percutaneous Approach (ICD-10-PCS; principal; 2025-10-13)
DX: D64.81 Anemia due to antineoplastic chemotherapy (principal); C71.9 Malignant neoplasm of brain, unspecified; C34.92 Malignant neoplasm of unspecified part of left bronchus or lung; C34.91 Malignant neoplasm of unspecified part of right bronchus or lung; T45.1X5A Adverse effect of antineoplastic and immunosuppressive drugs, initial encounter; D72.820 Lymphocytosis (symptomatic); D61.810 Antineoplastic chemotherapy induced pancytopenia; Z86.73 Personal history of transient ischemic attack (TIA), and cerebral infarction without residual deficits; Z79.899 Other long term (current) drug therapy; Z90.49 Acquired absence of other specified parts of digestive tract; Y92.89 Other specified places as the place of occurrence of the external cause
CPT/HCPCS: 36415; 71045; 80048; 80053; 80307; 81001; 83880; 85025; 85610; 85730; 86803; 86850; 86870; 86880; 86900; 86901; 86905; 86906; 87081; 87340; 87426; 87804; 93005; 96360; G0378; J2405